=== PATIENT | female | born 1990 | race Caucasian/White ===

== ENCOUNTER → 2016-10-16 | Outpatient (CLI) | payer BC, OTHER ==
[~2016-10-16] MED LIST: ASCO1CHW13 PO; BEE580CA PO; CRY28 PO; EPP3/2 IM
[2016-10-16 12:22] LABS: URINE APPEARANCE CLEAR (CLEAR); URINE BILIRUBIN NEG (NEG); URINE COLOR YELLOW; URINE NITRITE NEG (NEG); URINE PH 7.5 (4.5-7.5); URINE SPECIFIC GRAVITY 1.022 (1.000-1.030); UROBILINOGEN NEG (NEG)
[2016-10-16 12:36] LABS: MANUAL MICROSCOPIC REQUIRED? NO; REVIEW REQ? NO
== END | disposition home or self-care (01) ==
LOC: C.LABSPEC 11:35
PROVIDERS: ATTEND Obstetrics & Gynecology
DX: Z34.00 Encounter for supervision of normal first pregnancy, unspecified trimester (principal)

== ENCOUNTER → 2016-10-19 | Outpatient (CLI) | payer OTHER ==
[2016-10-19 16:02] LABS: BASO % 0.3 %; BASO ABS # 0.03 K/uL (0-0.2); COMPLETE YES; EOS % 1.3 %; HEMATOCRIT 37.5 % (37-47); IG% 0.2 %; LYMPH % 29.1 %; LYMPH ABS # 2.74 K/uL (1.2-3.4); MEAN CELL VOLUME 88.2 fL (80-100); MEAN CORPUSCULAR HEMOGLOBIN 30.4 pg (25-34); MEAN CORPUSCULAR HGB CONC 34.4 g/dl (32-36); MEAN PLATELET VOLUME 11.2 fL (7.4-10.4); MONO % 5.3 %; NEUT % 63.8 %; PLATELET COUNT 257 K/uL (130-400); RED BLOOD COUNT 4.25 M/uL (4.2-5.4); WHITE BLOOD COUNT 9.41 K/uL (4.8-10.8)
== END | disposition home or self-care (01) ==
LOC: C.LAB1850 14:24
PROVIDERS: ATTEND Obstetrics & Gynecology
DX: Z34.00 Encounter for supervision of normal first pregnancy, unspecified trimester (principal)

== ENCOUNTER → 2016-10-19 | Outpatient (CLI) | payer OTHER ==
[2016-10-23 07:27] LABS: CHLAMYDIA TRACH RNA*** NOT DETECTED (NOT DETECTED); GC (NEIS GONORRHOEAE)RNA** NOT DETECTED (NOT DETECTED)
== END | disposition home or self-care (01) ==
LOC: C.LABSPEC 16:33
PROVIDERS: ATTEND Obstetrics & Gynecology
DX: Z34.00 Encounter for supervision of normal first pregnancy, unspecified trimester (principal)

== ENCOUNTER → 2016-12-12 | Outpatient (CLI) | payer BC ==
[2016-12-12 10:46] LABS: GTGD 50 Grams
== END | disposition home or self-care (01) ==
LOC: C.LAB1850 09:16
PROVIDERS: ATTEND Obstetrics & Gynecology
DX: Z34.00 Encounter for supervision of normal first pregnancy, unspecified trimester (principal)

== ENCOUNTER → 2017-03-08 | Outpatient (CLI) | payer BC ==
[2017-03-08 16:39] LABS: HEMATOCRIT 36.4 % (37-47)
[2017-03-08 16:47] LABS: URINE APPEARANCE CLEAR (CLEAR); URINE BILIRUBIN NEG (NEG); URINE COLOR YELLOW; URINE NITRITE NEG (NEG); URINE SPECIFIC GRAVITY 1.009 (1.000-1.030); UROBILINOGEN NEG (NEG)
[2017-03-08 16:49] LABS: GTGD 50 Grams
[2017-03-08 16:56] LABS: MANUAL MICROSCOPIC REQUIRED? NO; REVIEW REQ? NO
== END | disposition home or self-care (01) ==
LOC: C.LAB1850 14:46
PROVIDERS: ATTEND Obstetrics & Gynecology
DX: Z34.03 Encounter for supervision of normal first pregnancy, third trimester (principal)

== ENCOUNTER → 2017-05-03 | Outpatient (CLI) | payer BC ==
[~2017-05-03] MED LIST changes: +PRENTAB26 PO; +SENN8.6T7 PO
== END | disposition home or self-care (01) ==
LOC: C.LABSPEC 14:24
PROVIDERS: ATTEND Obstetrics & Gynecology
DX: Z34.03 Encounter for supervision of normal first pregnancy, third trimester (principal)

== ENCOUNTER 2017-05-29 19:54 | Inpatient (IN) | payer BC ==
[~2017-05-29] VITALS: Ht 170.2 cm; Wt 100.0 kg
[~2017-05-29 19:54] MED LIST changes: -PRENTAB26 PO; -SENN8.6T7 PO
[2017-05-29] MEDS ORDERED: LACTATED RINGER'S 1000ML 1,000 ML IV PRN (20:41)
[2017-05-29 20:51] VITALS: Ht 170.2 cm; Wt 100.0 kg
[2017-05-29] MEDS ORDERED: PRENTAB26 PO (20:52)
[2017-05-29 21:04] LABS: HEMATOCRIT 37.5 % (37-47); HEMOGLOBIN 13.2 g/dL (12.0-16.0); MEAN CORPUSCULAR HEMOGLOBIN 30.6 pg (25-34); MEAN CORPUSCULAR HGB CONC 35.2 g/dl (32-36); MEAN PLATELET VOLUME 11.9 fL (7.4-10.4); PLATELET COUNT 201 K/uL (130-400); RED CELL DISTRIBUTION WIDTH CV 13.3 % (11.5-14.5); RED CELL DISTRIBUTION WIDTH SD 42.3 fL (36.4-46.3)
[2017-05-29] MEDS ORDERED: MISOPROSTOL 25 MCG TAB PV STA (23:32)
[2017-05-30] MEDS: LACTATED RINGER'S 1000ML 1,000 ML IV SCH ×2 (04:51→07:15)
[2017-05-30] MEDS ORDERED: LACTATED RINGER'S 1000ML 500 ML IV PRN ×2 (04:52→06:01)
[2017-05-30] MEDS ORDERED: BUPIVACAINE 0.25% 30 ML VIAL ONE (04:54)
[2017-05-30] MEDS ORDERED: EpHEDrine SULFATE INJ 50 MG/ML AMP ONE ×2 (04:54→11:26)
[2017-05-30] MEDS ORDERED: FENTANYL CITRATE INJ 50 MCG/1 ML 2 ML VIAL ONE ×2 (04:54→10:16)
[2017-05-30] MEDS ORDERED: FENTANYL 2MCG/ML ROPIV 1.25MG/ML 100ML BAG EPI ONE (04:55)
[2017-05-30] MEDS ORDERED: OXYTOCIN 30 UNITS/500ML NSS IV PRN ×2 (05:00→11:00)
[2017-05-30] MEDS ORDERED: NALOXONE HCL INJ 1 MG in SODIUM CHLORIDE 0.9% 1000ML 1,000 ML IV PRN (06:01)
[2017-05-30] MEDS ORDERED: NALOXONE HCL INJ 0.4 MG/1 ML VIAL/CARP IV PRN (06:15)
[2017-05-30] MEDS ORDERED: DiphenhydrAMINE HCL 50 MG/ML VIAL IV PRN (06:15)
[2017-05-30] MEDS ORDERED: FENTANYL 2MCG/ML ROPIV 1.25MG/ML 100ML BAG EPI PRN (06:15)
[2017-05-30] MEDS ORDERED: NALBUPHINE HCL INJ 10 MG/ML AMP IV PRN (06:15)
[2017-05-30] MEDS ORDERED: EpHEDrine SULFATE INJ 50 MG/ML AMP IV PRN (06:15)
[2017-05-30] MEDS ORDERED: CEFAZOLIN IV 3,000 MG in DEXTROSE 5% 50ML 50 ML IV STA (10:12)
[2017-05-30] MEDS ORDERED: CEFAZOLIN IV 3,000 MG in SYRINGE 7.5 ML IV ONE (10:30)
[2017-05-30] MEDS ORDERED: SODIUM BICARB 8.4% INJ 50 MEQ/50 ML SYR IV ONE (10:52)
[2017-05-30] MEDS ORDERED: CHLOROPROCAINE HCL 3% 20 ML VIAL ONE (10:52)
[2017-05-30] MEDS ORDERED: LACTATED RINGER'S 1000ML 1,000 ML IV SCH (10:58)
[2017-05-30] MEDS ORDERED: SUPERCREAM 0.870 % 15GM JAR EXT PRN (11:00)
[2017-05-30] MEDS ORDERED: BENZOCAINE 20% AER SPR 82.5 GM CAN EXT PRN (11:00)
[2017-05-30] MEDS ORDERED: ACETAMINOPHEN/CODEINE 300/30MG TAB PO PRN ×2 (11:00)
[2017-05-30] MEDS ORDERED: LANOLIN OINT EXT PRN (11:00)
[2017-05-30] MEDS ORDERED: ACETAMINOPHEN 325 MG TAB PO PRN (11:00)
[2017-05-30] MEDS ORDERED: DIPHTHERIA/TETANUS/PERTUSSIS 0.5 ML SYR/VIAL IM. ONE (11:00)
--- NOTE | 2017-05-30 11:07 | [facility] Post Operative Brief Note ---
Immediate Operative Summary Operative Date May 30, 2017. Pre-Operative Diagnosis 1) 4th degree laceration Post-Operative Diagnosis same Procedure(s) Performed 1) EUA 2) Repair of 4th degree laceration Surgeon Lucrecia Director Of Health Education Surgeon(s) Demario Estimated Blood Loss 200 Findings See Below Incomplete 4th degree tear taken down, then repaired in proper fashion Specimens None Drains None Anesthesia Type L&D Only EPID Exist Disposition Disposition: L&D
--- NOTE | 2017-05-30 11:16 | Anesthesiology Progress Note ---
Anesthesia Post Op Note Date & Time May 30, 2017 at 11:16 Notes Mental Status: alert / awake / arousable, participated in evaluation Pt Amnestic to Procedure: Yes Nausea / Vomiting: adequately controlled Pain: adequately controlled Airway Patency, RR, SpO2: stable & adequate BP & HR: stable & adequate Hydration State: stable & adequate Neuraxial Anesthesia: was administered, sensory block is resolving Anesthetic Complications: no major complications apparent
[2017-05-30] MEDS ORDERED: MEASLES, MUMPS & RUBELLA VIRUS VIAL SQ. ONE (11:30)
--- NOTE | 2017-05-30 11:31 | DELIVERY SUMMARY ---
DATE OF OPERATION: 05/30/2017 FINDINGS: Viable male infant with Apgars of 8 and 9. Baby delivered spontaneously over a midline fourth degree laceration. Cord gases, cord blood samples obtained. Placenta delivered spontaneously. Initial repair of fourth degree laceration in the delivery room was inadequate necessitating patient being taken to the operating room for exam under anesthesia and repair of fourth degree. ESTIMATED BLOOD LOSS FOR DELIVERY: 500 cc. LABOR NOTE: The patient is a 26-year-old 1 para 0 with an EDC of 05/31/2017 at 39+ weeks gestational age who presented to labor and delivery with spontaneous rupture of membranes. The patient states that membranes ruptured in the evening of the 29 of May with no real contractions. The patient has had a benign course. Her blood type is O positive, antibody negative, Rubella equivocal, hepatitis B negative. She declined a quad screen. She had a normal one hour Glucola x2 and a negative third trimester beta strep culture. Upon admission the patient was 1 cm dilated, 50% effaced, -3 station. Amnisure examination confirmed rupture of membranes. The patient was having some uterine activity so was observed for several hours, but the contractions did not increase in intensity. Because of the rupture of membranes with unfavorable cervix she received Cytotec 25 mcg intravaginally to induce labor. The patient progressed into a good labor pattern 6 hours after the Cytotec dose. Her cervix was now 1 cm 100% and -1. Anesthesia was consulted and epidural was placed. Tracing was category 3. The patient progressed to 3 cm and Pitocin was initiated per induction protocol for augmentation of labor. Delivering physician assumed care of the patient at this point. Repeat examination at that point showed the patient to be fully dilated at a +2 station with a category 2 tracing. The patient began her second stage and pushed for approximately 30 minutes delivering a viable male infant. The baby delivered over a midline laceration with spontaneous fourth degree tear, probably secondary to compound arm. Cord was clamped and cut. Cord gases, cord blood samples obtained. Placenta was delivered spontaneously. Inspection of the perineum showed a midline laceration slightly off to midline to the right with fourth degree tear. The ends of the rectal mucosa were isolated and closed with two layers of 4-0 Vicryl, the sphincter was then reapproximated with interrupted [id number] 2-0 Vicryl sutures and the episiotomy was then closed with 4-0 and 2-0 Vicryl. Examination after the closure in the delivery room showed window through the rectum into the vaginal mucosa consistent with an incomplete repair. At this poin the decision was made to summon anesthesia and to take the patient back to the operating room for exam under anesthesia and fourth degree repair. Please see separate operative note for details. Sponge and needle count was correct. I attest to the content of the Intraoperative Record and any orders documented therein. Any exception s are noted below.
[2017-05-30 11:45] LABS: HEMATOCRIT 27.9 % (37-47); HEMOGLOBIN 9.9 g/dL (12.0-16.0)
[2017-05-30] MEDS: IBUPROFEN 600 MG TAB PO PRN ×2 (12:46→23:49)
--- NOTE | 2017-05-30 12:47 | OPERATIVE REPORT ---
DATE OF OPERATION: 05/30/2017 PREOPERATIVE DIAGNOSES: Incomplete fourth degree repair. POSTOPERATIVE DIAGNOSIS: Same. PROCEDURES PERFORMED: 1. Exam under anesthesia. 2. Repair of fourth degree laceration. SURGEON: Dr. Singer. WEBSPHERE ADMINISTRATOR: Dr. Arnold Hanks. ANESTHESIA: Epidural. FINDINGS: A previous incomplete episiotomy repaired taken down showing a fourth degree laceration. Fourth degree was then repaired. Examination post repair showed an intact repair. DESCRIPTION OF PROCEDURE: After dosing of epidural, the patient was taken to the operating room and placed in dorsolithotomy position. Sutures from previous attempted repair were cut, re-exposing the fourth degree laceration. The area was cleansed with Betadine. Edges of the rectal mucosa were isolated and at the apex, a 4-0 Vicryl suture was started. The rectal mucosa was then closed with a running locking 4-0 Vicryl suture. A second layer of 4-0 Vicryl was then placed in an imbricating fashion, closing the rectal mucosa at second time. Edges of the sphincter muscle was isolated on both sides and they were reapproximated with interrupted [id number] 2-0 Vicryls x3. The remainder of the laceration was repaired in routine fashion with 4-0 and 2-0 Vicryl. Repeat rectal examination showed the rectum to be intact and the sphincter to be intact. Estimated blood loss 500 mL. The patient was taken to recovery room in satisfactory condition. I attest to the content of the Intraoperative Record and any orders documented therein. Any exception s are noted below.
[2017-05-30 15:25] VITALS: BP 137/82; PULSE 73; TEMP 37
[2017-05-30 19:55] VITALS: BP 98/64; PULSE 83; TEMP 36.7; O2SAT 98
[2017-05-30] MEDS: DOCUSATE SODIUM/SENNA 50/8.6MG TAB PO SCH (21:30)
[2017-05-30 23:30] VITALS: BP 111/70; PULSE 91; TEMP 36.6
[2017-05-31 04:30] VITALS: BP 97/64; PULSE 82; TEMP 36.6
[2017-05-31 06:49] LABS: HEMATOCRIT 25.6 % (37-47); HEMOGLOBIN 8.7 g/dL (12.0-16.0)
--- NOTE | 2017-05-31 06:54 | Progress Note ---
Subjective May 31, 2017. Subjective conversation w/ patient (Patient seen and examined at bedside. Reports no overnight events.) Ambulation: ambulating normally Voiding: no voiding problems (slight pain with voiding) Passing Gas: Yes Diet Tolerance: Regular Diet Lochia: Moderate Feeding Type: Breast Feeding Pain: 3/10 in perineal region after urinating, well controlled with pain meds Review of Systems Constitutional: No fever, No chills Respiratory: No cough, No shortness of breath Cardiac: No chest pain, No edema Breast: No breast pain Abdomen: No pain, No nausea, No vomiting Female : No dysuria Objective Vital Signs Date Time Temp Pulse Resp B/P (MAP) Pulse Ox O2 Delivery O2 Flow Rate FiO2 05/31/17 04:30 36.6 82 18 97/64 (75) Room Air 05/30/17 23:30 Room Air 05/30/17 23:30 36.6 91 18 111/70 (84) Room Air 05/30/17 19:55 36.7 83 18 98/64 (75) 98 Room Air 05/30/17 15:25 37.0 73 20 137/82 (100) Physical Exam General Appearance: WELL-APPEARING, WD/WN, NO APPARENT DISTRESS Respiratory/Chest: chest non-tender, lungs clear, normal breath sounds, no respiratory distress, no accessory muscle use Cardiovascular: regular rate, rhythm, no edema, no gallop, no murmur Abdomen: normal bowel sounds, non tender, soft Fundus: Firm, Non-Tender, Relation to Umbilicus (at umbilicus) Extremities: non-tender, normal inspection, no pedal edema, no calf tenderness Laboratory Results Last 24 Hours Test 05/30/17 11:32 05/31/17 06:30 Hemoglobin 9.9 g/dL Hematocrit 27.9 % Medications Current Inpatient Medications Medications (Trade) Dose Ordered Sig/Zachery Route Start Time Stop Time Status Last Admin Dose Admin Lactated Ringer's 1,000 ml @ 125 mls/hr Q8H IV 05/29/17 20:41 05/31/17 20:40 05/30/17 07:15 125 MLS/HR Lactated Ringer's 500 ml @ 999 mls/hr Q31M PRN IV 05/30/17 04:52 06/29/17 04:51 Lactated Ringer's 1,000 ml @ 15 mls/hr Q24H IV 05/30/17 10:58 06/01/17 10:57 05/30/17 15:20 15 MLS/HR Oxytocin (Pitocin IV) 30 units UD PRN IV 05/30/17 11:00 06/29/17 10:59 Benzocaine (Dermoplast Aero Spr) 1 appln PRN PRN EXT 05/30/17 11:00 06/29/17 10:59 05/30/17 15:48 1 APPLN Cocaine HCl (Supercream 0.870% Cr) BID PRN EXT 05/30/17 11:00 06/13/17 10:59 Lanolin (Lanolin Oint) PRN PRN EXT 05/30/17 11:00 06/29/17 10:59 Prenat Multivit/ [place]/Iron/Folic Ac ( Vitamin Tab) 1 tab DAILY PO 05/31/17 08:00 06/30/17 07:59 Ibuprofen (Motrin Tab) 600 mg Q4H PRN PO 05/30/17 11:00 06/29/17 10:59 05/30/17 23:49 600 MG Acetaminophen (Tylenol Tab) 650 mg Q6H PRN PO 05/30/17 11:00 06/29/17 10:59 Acetaminophen/ Codeine Phosphate (Tylenol w/ Codeine #3 Tab) 1 tab Q4H PRN PO 05/30/17 11:00 06/29/17 10:59 Acetaminophen/ Codeine Phosphate (Tylenol w/ Codeine #3 Tab) 2 tab Q4H PRN PO 05/30/17 11:00 06/29/17 10:59 Ferrous Sulfate (Feosol Tab) 325 mg DAILY PO 05/31/17 08:00 06/30/17 07:59 Senna/Docusate Sodium (Senokot S Tab) 1 tab QPM PO 05/30/17 21:00 06/29/17 20:59 05/30/17 21:30 1 TAB Assessment and Plan Post- Day#: 1 Continue Routine Care: 26 year old [id number] s/p NVD & operative repair of 4th degree perineal tear day 1 s/p NVD - patient doing well clinically - O+, rubella equivocal, GBS -ve - MMR ordered - monitor lochia - vitals reviewed and wnl - continue oral analgesia prn - continue encouraging ambulation and - Hgb dropped from 13.2 to 9.9 post delivery, recheck today at 8.7. Will continue to monitor w/h&h - anticipate d/c tomorrow s/p operative repair of 4th degree tear - continue ayaz-colace qhs & frequent sitz baths - d/c with prescription for ayaz-colace Resident Physician Supervision Note: I interviewed and examined the patient. Discussed with Dr. Abraham and agree with findings and plan as documented in the note. Any exceptions or clarifications are listed here: Discussed delivery and repair of 4th degree, the rational for going to the OR for the repair. Patient to begin ambulation. All questions answered. Documented By: Juan José Singer Resident Tracking Resident Involvement: Resident Care Provided Care Provided: OB Delivery
[2017-05-31 07:31] VITALS: BP 98/83; PULSE 90; TEMP 37.1; O2SAT 98
[2017-05-31] MEDS: IBUPROFEN 600 MG TAB PO PRN ×2 (08:31→19:36)
[2017-05-31] MEDS: PRENATAL VITAMIN TAB PO SCH (09:08)
[2017-05-31] MEDS: FERROUS SULFATE 325 MG TAB PO SCH (09:08)
[2017-05-31 15:15] VITALS: BP 132/87; PULSE 93; TEMP 36.7
[2017-05-31] MEDS: DOCUSATE SODIUM/SENNA 50/8.6MG TAB PO SCH (21:08)
[2017-06-01] VITALS: BP 112/71; PULSE 64; TEMP 37.2
--- NOTE | 2017-06-01 06:46 | Progress Note ---
Subjective Jun 01, 2017. Subjective conversation w/ patient (Patient seen and examined at bedside) Ambulation: ambulating normally Voiding: no voiding problems (slight pain with voiding) Passing Gas: Yes Diet Tolerance: Regular Diet Lochia: Small Feeding Type: Breast Feeding Pain: Minimal and controlled with meds Review of Systems Constitutional: No fever, No chills, No sweats Respiratory: No cough, No shortness of breath Cardiac: No chest pain Abdomen: No pain, No nausea, No vomiting Female : No dysuria Objective Vital Signs Date Time Temp Pulse Resp B/P (MAP) Pulse Ox O2 Delivery O2 Flow Rate FiO2 06/01/17 00:00 37.2 64 18 112/71 (85) Room Air 06/01/17 00:00 Room Air 05/31/17 15:15 36.7 93 18 132/87 (102) Room Air 05/31/17 15:15 Room Air 05/31/17 10:06 Room Air 05/31/17 07:31 37.1 90 18 98/83 (88) 98 Room Air Physical Exam General Appearance: WELL-APPEARING, WD/WN, NO APPARENT DISTRESS Respiratory/Chest: chest non-tender, lungs clear, normal breath sounds, no respiratory distress, no accessory muscle use Cardiovascular: regular rate, rhythm, no edema, no gallop, no murmur Abdomen: normal bowel sounds, non tender, soft Fundus: Firm, Non-Tender, Relation to Umbilicus (1cm below) Extremities: normal inspection, no pedal edema, no calf tenderness Laboratory Results Last 24 Hours Test 06/01/17 04:44 Medications Current Inpatient Medications Medications (Trade) Dose Ordered Sig/Zachery Route Start Time Stop Time Status Last Admin Dose Admin Lactated Ringer's 500 ml @ 999 mls/hr Q31M PRN IV 05/30/17 04:52 06/29/17 04:51 Lactated Ringer's 1,000 ml @ 15 mls/hr Q24H IV 05/30/17 10:58 06/01/17 10:57 05/30/17 15:20 15 MLS/HR Oxytocin (Pitocin IV) 30 units UD PRN IV 05/30/17 11:00 06/29/17 10:59 Benzocaine (Dermoplast Aero Spr) 1 appln PRN PRN EXT 05/30/17 11:00 06/29/17 10:59 05/30/17 15:48 1 APPLN Cocaine HCl (Supercream 0.870% Cr) BID PRN EXT 05/30/17 11:00 06/13/17 10:59 Lanolin (Lanolin Oint) PRN PRN EXT 05/30/17 11:00 06/29/17 10:59 Prenat Multivit/ [place]/Iron/Folic Ac ( Vitamin Tab) 1 tab DAILY PO 05/31/17 08:00 06/30/17 07:59 05/31/17 09:08 1 TAB Ibuprofen (Motrin Tab) 600 mg Q4H PRN PO 05/30/17 11:00 06/29/17 10:59 05/31/17 19:36 600 MG Acetaminophen (Tylenol Tab) 650 mg Q6H PRN PO 05/30/17 11:00 06/29/17 10:59 Acetaminophen/ Codeine Phosphate (Tylenol w/ Codeine #3 Tab) 1 tab Q4H PRN PO 05/30/17 11:00 06/29/17 10:59 Acetaminophen/ Codeine Phosphate (Tylenol w/ Codeine #3 Tab) 2 tab Q4H PRN PO 05/30/17 11:00 06/29/17 10:59 Ferrous Sulfate (Feosol Tab) 325 mg DAILY PO 05/31/17 08:00 06/30/17 07:59 05/31/17 09:08 325 MG Senna/Docusate Sodium (Senokot S Tab) 1 tab QPM PO 05/30/17 21:00 06/29/17 20:59 05/31/17 21:08 1 TAB Assessment and Plan Post- Day#: 2 Continue Routine Care: 26 year old [id number] s/p NVD & operative repair of 4th degree perineal tear day 2 s/p NVD - patient doing well clinically - O+, rubella equivocal, GBS -ve - MMR ordered - monitor lochia - vitals reviewed and wnl - continue oral analgesia prn - continue encouraging ambulation and - Hgb dropped from 13.2 to 8.7 post delivery. Will assess h&h today when labs available - will review d/c instructions as patient ready for discharge s/p operative repair of 4th degree tear - continue ayaz-colace qhs & frequent sitz baths - patient doing well - had 1 BM yesterday and tolerated this w/out pain - d/c with prescription for ayaz-colace Resident Physician Supervision Note: I interviewed and examined the patient. Discussed with Dr. Abraham and agree with findings and plan as documented in the note. Any exceptions or clarifications are listed here: Doing very well. Pain well controlled. Has had BM. Plan d/c home. Instructions given--nothing in vagina stressed. Documented By: Lydia Abdullahi Resident Tracking Resident Involvement: Resident Care Provided Care Provided: OB Delivery
[2017-06-01] MEDS: FERROUS SULFATE 325 MG TAB PO SCH (07:41)
[2017-06-01] MEDS: PRENATAL VITAMIN TAB PO SCH (07:41)
[2017-06-01] MEDS: IBUPROFEN 600 MG TAB PO PRN (07:45)
[2017-06-01 07:58] VITALS: BP 112/77; PULSE 75; TEMP 37
--- NOTE | 2017-06-01 08:08 | Discharge Instructions ---
Discharge Instructions Date of Service Jun 01, 2017. Admission Reason for Admission: Check Rupture Of Membranes Discharge Discharge Diagnosis / Problem: s/p vaginal delivery with fourth degree care Discharge Goals Goal(s): Routine recovery after delivery Medications Continue Dispensed Medications: supercream, dermaplast, tucks, lansinoh Activity Recommendations Activity Limitations: per Instructions/Follow-up section . Instructions / Follow-Up Instructions / Follow-Up ACTIVITY RECOMMENDATIONS: * Gradual return to full activity over the next 2-3 weeks. * No lifting - nothing heavier than baby over the next 2-3 weeks. * Do not engage in vigorous exercise, sexual activity or sports until cleared by your physician. * Do not drive or operate any motorized equipment until cleared by your physician. * You may shower/bathe daily. MEDICATIONS: For discomfort or pain, you may use Acetaminophen (Tylenol), Ibuprofen (Advil), or Naproxen (Aleve) following the package directions. For constipation you may use Colace following the package directions. BREAST CARE: If you are not breast feeding: * Wear a supportive bra 24 hours a day for one to two weeks. * Avoid stimulating your breasts and nipples as much as possible during the first few weeks after delivery. * When taking a shower, have the warm water hit your back, not breasts. * When your breasts feel full, apply ice packs. Usually three to four times a day helps ease the discomfort. * Take a mild pain medication (Tylenol / Motrin) when you are uncomfortable. If breast feeding: * Use breast milk to lubricate nipples. Lansinoh cream may be used for sore nipples. You do not need to remove cream prior to breast feeding. If using a different brand of cream, check the label for directions regarding removal of cream prior to nursing. * Wear a supportive bra. * If having problems with breasts or breast feeding, call a loans consultant or your health care provider. EPISIOTOMY CARE: After delivery, if you have an episiotomy (stitches), the following steps will ease discomfort and aid healing. * For the first 24 hours after delivery, place ice packs next to your episiotomy to help reduce swelling. * After the first 24 hour-period, sitz baths, either portable or in the tub, are suggested. A shower with a shower arm sprayed over the episiotomy may be comforting. * [place] care should be done after each voiding and bowel movement. Squirt warm water from a plastic bottle over the perineum (region of the body between the anus and urinary opening) and pat dry. * Use Dermoplast to ease discomfort. Shake container. [place] directly over the episiotomy. Place a Tucks on a clean sanitary pad next to your episiotomy. SPECIAL CARE INSTRUCTIONS: When you are discharged from the hospital, it is important for you to follow the instructions listed below: * During the first week at home, you should be able to care for yourself and your baby. In addition, the usual light household activities are encouraged. * Limit your activities to the way you feel. Do not try to clean the house or move furniture. Be sensible. * If you actively engage in sports and have done so up until the time of your delivery, you may resume these activities as soon as you feel able. This may take up to one month or even longer. Use good judgment. * Continue to take your vitamins for at least six weeks after the of your baby. * Your diet need not be limited unless you were on a special diet before your delivery. Breast-feeding mothers need around 2500 calories per day and at least 64-80 ounces of fluid per day (8 to 10 glasses). * You should eat foods from the four major food groups. Crash diets or fad diets are to be avoided. Eating lean meats, fresh fruits and vegetables, low-fat dairy products, high fiber foods and a regular exercise program, will help you get back to your pre- weight without putting your health at risk. * Constipation is sometimes a problem after delivery. Take a mild laxative as needed. If breast feeding, Milk of Magnesia is acceptable to use. You may use a suppository or Fleets enema if no episiotomy. * A daily shower or tub bath is suggested. Be sure to thoroughly and gently dry the perineum. * A bloody vaginal discharge will usually continue until around four weeks post . A small amount of bleeding may continue for as long as six weeks. Vaginal discharge changes from the bright red bleeding after delivery to pink then brownish and finally yellowish-pink before becoming white and disappearing. * Bleeding may increase with activity. Your first period may come in 4-8 weeks. If you are breast feeding, your period may be delayed even longer. * [place] (sex) can begin whenever both you and your partner feel comfortable and do not have any form of genital infection. It is recommended that you wait at least six weeks for internal and external healing to occur. If you have questions, please talk to your health care practitioner. A condom should be used to prevent infection and . * Foreplay, gentle intercourse and lubrication is very important the first several times to prevent pain. A water-based lubricant such as K-Y jelly or Astroglide may be used. * If you have RH negative blood and your baby is RH positive, you will receive RHOGAM by injection prior to discharge. The nurse will give you a card to keep with you that has the date and place that you received RHOGAM after delivery. * During your care, you had a Rubella screen done to check for the presence of rubella antibodies in your blood. If your test was negative, you will receive a Rubella vaccine prior to discharge. This vaccine may cause a fever, soreness at the injection site and flu-like symptoms. If these symptoms persist, notify your health care practitioner. is not advised for one month after a Rubella vaccine. * Verbalizes understanding of car seat law as reviewed with patient nursing. * Car Seat hand-out given and reviewed with patient by nursing. * Shaken baby information reviewed with patient by nursing. Call you doctor if: * Heavy bleeding (saturating several pads an hour) or passing clots the size of your fist. * A fever >101 degrees F (38.3 degrees C) on two occasions four hours apart and /or chills. * Unusual pain in the pelvic or vaginal areas. * "Baby Blues" lasting longer than two weeks. If you have any questions or concerns, call your health care practitioner at . FOLLOW UP VISIT: * Please call the office at to schedule a 6 week examination. It is important you keep this appointment. It is important for you to make arrangements for either yearly or twice yearly check-ups thereafter. Current Hospital Diet Patient's current hospital diet: Regular OB Diet Discharge Diet Recommended Diet: Regular Diet Procedures Procedures Performed: Repair of 4th degree laceration under epidural anesthesia Pending Studies Studies pending at discharge: no Medical Emergencies . Who to Call and When: Medical Emergencies: If at any time you feel your situation is an emergency, please call 911 immediately. . Non-Emergent Contact Non-Emergency issues call your: Stock [employer] . . "Provider Documentation" section prepared by Lydia Abdullahi. . VTE Core Measure Inpt VTE Proph given/why not?: Treatment not indicated
[2017-06-01] MEDS ORDERED: SENN8.6T7 PO (08:11)
[2017-06-01 08:54] LABS: HEMATOCRIT 25.5 % (37-47); HEMOGLOBIN 8.6 g/dL (12.0-16.0)
[2017-06-01 10:19] VITALS: BP_DIAS 77; PULSE 75; TEMP 37
--- NOTE | 2017-06-04 14:17 | DISCHARGE SUMMARY ---
ADMITTING DIAGNOSES: 1. Term . 2. Active labor. DISCHARGE DIAGNOSES: Same. PROCEDURES PERFORMED: 1. Spontaneous vaginal delivery. 2. Operative repair of fourth degree laceration. DISCHARGE MEDICATIONS: Chelsea-Colace 1 p.o. daily p.r.n. ADMISSION HISTORY: The patient is a 26-year-old 1, para 0 with an EDC of 31 May at 39+ weeks gestational age who presented to labor and delivery with spontaneous rupture of membranes. The patient states that the membranes ruptured in the evening of the with no real contractions. The patient has had a benign course. Her blood type O positive, antibody negative, rubella equivocal, and hepatitis B negative. She declined a quad screen. She had a normal 1 hour Glucola x2 and a negative third trimester beta strep culture. ADMISSION PHYSICAL EXAMINATION: GENERAL: Showed a gravid female in no acute distress. ABDOMEN: Gravid, vertex, positive heart tones, estimated weight of 7 pounds. PELVIC: Showed the cervix to be 1 cm dilated, 50% effaced, -3 station with spontaneous rupture of membranes. EXTREMITIES: Showed no deep calf tenderness. NEUROLOGIC: Grossly intact. ADMISSION LABORATORY VALUES: Showed an H&H of 13.2 and 37.5. HOSPITAL COURSE: The patient was having some uterine activity on admission, so she was observed for several hours, but the contractions did not increase in intensity. Because of the rupture of membranes and unfavorable cervix, she initially received Cytotec 25 mcg intravaginally to induce labor. The patient progressed into good strong labor pattern 6 hours after the Cytotec dose and her cervix was now 1 cm dilated, 100% and -1 station. She was uncomfortable, anesthesia was consulted and an epidural was placed. Tracing was category 1. The patient progressed to 3 cm and Pitocin was then initiated per induction protocol for augmentation of labor. Delivering physician assumed care of the patient at this point. Repeat examination showed the patient to be fully dilated, +2 station with a category 2 tracing. The patient began her second stage and pushed for approximately 30 minutes delivering a viable male . Baby delivered over a midline laceration with a spontaneous fourth degree tear, probably secondary to a compound arm presentation. Cord was clamped and cut. Cord gases, cord blood samples obtained. Placenta was delivered spontaneously. Inspection of the perineum showed a midline laceration slightly off to the midline to the right with fourth degree tear. The end of the rectal mucosa were isolated and closed with 2 layers of 4-0 Vicryl, the sphincter was then reapproximated with interrupted [id number] 2-0 Vicryl sutures in the episiotomy was then closed with 4-0 and 2-0 Vicryls. Examination after the closure in the delivery room showed a window through the rectum into the vaginal mucosa consistent with incomplete repair. At this point, the decision was made to summon the anesthesia and take the patient back to the operating room for exam under anesthesia and fourth degree repair. The patient was taken back into the operative room and placed in dorsal lithotomy position. Her epidural was dosed up by anesthesia and a previous episiotomy repair was taken down showing the fourth degree laceration. Fourth degree was then repaired as well as the plication of the rectal muscles and closure of the midline vaginal laceration. Postoperatively, the patient did well. On the first day, the H&H came back at 8.7 and 25.6. On the second day, the patient was ambulating without difficulty. She was given the routine discharge instructions and instructions with care of the fourth degree including t.i.d. Sitz bath with the first 2 weeks and Chelsea-Colace 1 daily for the first 2 weeks. She will follow up for a routine check but as always she was instructed to call with any questions, problems or difficulties.
== END 2017-06-01 13:25 | disposition home or self-care (01) | DRG 775 ==
LOC: C.LD 19:54 → C.OPB 19:54 → C.LD 20:42 → C.OBG 05-30 15:30
PROVIDERS: ADMIT Obstetrics & Gynecology; ATTEND Obstetrics & Gynecology
PROC: 3E0P7GC Introduction of Other Therapeutic Substance into Female Reproductive, Via Natural or Artificial Opening (ICD-10-PCS; 2017-05-29)
PROC: 0DQR0ZZ Repair Anal Sphincter, Open Approach (ICD-10-PCS; 2017-05-30)
PROC: 0KQM0ZZ Repair Perineum Muscle, Open Approach (ICD-10-PCS; 2017-05-30)
PROC: 0DQP0ZZ Repair Rectum, Open Approach (ICD-10-PCS; 2017-05-30)
PROC: 10E0XZZ Delivery of Products of Conception, External Approach (ICD-10-PCS; principal; 2017-05-30 10:34)
DX: O42.92 Full-term premature rupture of membranes, unspecified as to length of time between rupture and onset of labor (principal); O70.3 Fourth degree perineal laceration during delivery; O32.6XX0 Maternal care for compound presentation, not applicable or unspecified; Z3A.39 39 weeks gestation of pregnancy; Z37.0 Single live birth